=== PATIENT | female | born 1970 | race American Indian/Alaskan Native ===

== ENCOUNTER 2017-03-28 10:18 | Outpatient (CLI) | payer MEDICARE ==
--- NOTE | 2017-03-28 12:12 | XRay Report ---
XRAY LEFT HIP THREE VIEWS: 03/28/17 10:18:00 CLINICAL: Left hip pain. FINDINGS: Status post left total hip replacement with normal appearance of the prosthesis. No apparent loosening. The pelvic bones are intact. Mild arthritis of the right hip. Normal soft tissues. IMPRESSION: Negative study status post left total hip replacement.
== END 2017-03-28 10:19 | disposition home or self-care (01) ==
LOC: SPVIMAG 10:18
PROVIDERS: ATTEND Orthopaedic Surgery Sports Medicine
DX: M25.552 Pain in left hip (principal); M16.11 Unilateral primary osteoarthritis, right hip; Z96.642 Presence of left artificial hip joint